=== PATIENT | female | born 1940 | race Caucasian/White ===

== ENCOUNTER 2024-10-11 13:04 | Inpatient (IN) | payer MEDICARE, MEDICAID ==
[~2024-10-11] VITALS: Ht 149.9 cm; Wt 59.0 kg
[2024-10-11 15:50] LABS: CHLORIDE 100 mEq/L (98-107); POTASSIUM 5.1 mEq/L (3.5-5.1); SODIUM 136 mEq/L (136-145)
[2024-10-11 15:51] LABS: CARBON DIOXIDE 24 mEq/L (21-32)
[2024-10-11 15:52] LABS: BASOPHILS % 0.4 % (0.0-2.0); CALCIUM 8.7 mg/dL (8.7-10.4); EOSINOPHILS % 0.5 % (0.0-5.0); HEMOGLOBIN. 12.2 g/dL (12.0-16.0); LYMPHOCYTES % 29.1 % (20.0-50.0); MEAN CORPUSCULAR HEMOGLOBIN 32.9 pg (28.0-32.0); MEAN CORPUSCULAR HGB CONC 33.9 g/dL (31.0-37.0); MEAN CORPUSCULAR VOLUME 96.9 fL (81.0-99.0); MEAN PLATELET VOLUME 7.5 fl (7.4-10.4); MONOCYTES % 5.9 % (2.0-8.0); NEUTROPHILS % 64.1 % (40.0-76.0); PLATELET 265 x1000/uL (130-400); RED BLOOD CELL COUNT 3.72 mill/uL (4.2-5.4); RED CELL DISTRIBUTION WIDTH 14.2 % (11.6-14.6); WHITE BLOOD COUNT 7.3 x1000/uL (4.5-11.0)
[2024-10-11 15:57] LABS: CREATININE 0.8 mg/dL (0.6-1.0); GLUCOSE 248 mg/dL (70-105); UREA NITROGEN BLOOD 14 mg/dL (9-23)
[2024-10-11 15:59] LABS: TROPONIN I HIGH SENSITIVITY 4 ng/L (3.0-34)
[2024-10-11] MEDS ORDERED: GUAIFENESIN 200MG/10ML SUGAR FREE UDC PO PRN (16:30)
[2024-10-11] MEDS ORDERED: IPRATROPIUM/ALBUTEROL 0.5-3(2.5)MG/3ML NEB HHN PRN (16:30)
[2024-10-11] MEDS ORDERED: DOCUSATE SODIUM 100MG CAPSULE PO PRN (16:30)
[2024-10-11 17:40] LABS: TROPONIN I HIGH SENSITIVITY < 4 ng/L (3.0-34)
[2024-10-11 17:55] LABS: COLOR URINE YELLOW (YELLOW); GLUCOSE URINE 1+ (NEGATIVE); KETONES URINE NEGATIVE (NEGATIVE); LEUKOCYTE ESTERASE URINE 2+ (NEGATIVE); NITRITE URINE NEGATIVE (NEGATIVE); OCCULT BLOOD URINE NEGATIVE (NEGATIVE); PROTEIN URINE NEGATIVE (NEGATIVE); SPECIFIC GRAVITY URINE 1.014 (1.005-1.030)
[2024-10-11 18:00] VITALS: BP 183/50; PULSE 76; RESP 14; TEMP 36.8
[2024-10-11] MEDS ORDERED: DEXTROSE 50% WATER 50ML SYRINGE IV PRN (18:00)
[2024-10-11 18:14] LABS: CLARITY URINE HAZY (CLEAR)
[2024-10-11 18:15] LABS: *AMPHETAMINES SCREEN URINE NEGATIVE (NEGATIVE); *BARBITURATES SCREEN URINE NEGATIVE (NEGATIVE); *BENZODIAZEPINES SCREEN URINE NEGATIVE (NEGATIVE); *COCAINE SCREEN URINE NEGATIVE (NEGATIVE); CANNABINOID URINE SCREEN NEGATIVE (NEGATIVE); ECSTASY MDMA SCREEN URINE NEGATIVE (NEGATIVE); METHADONE URINE SCREEN NEGATIVE (NEGATIVE); OPIATES URINE SCREEN NEGATIVE (NEGATIVE); PHENCYCLIDINE URINE SCREEN NEGATIVE (NEGATIVE)
[2024-10-11 18:16] LABS: RBC URINE NONE SEEN /hpf (0-2); SQUAMOUS EPITHELIAL CELL URINE 1+ /lpf (RARE/1+)
[2024-10-11 18:17] LABS: BACTERIA URINE 4+
[2024-10-11 18:29] VITALS: BP 183/50; PULSE 62; RESP 14; TEMP 36.9
[2024-10-11] MEDS: SODIUM CHLORIDE 0.45% 1,000 ML IV SCH (18:32)
[2024-10-11] MEDS ORDERED: LISI10TA26 MT (18:52)
[2024-10-11] MEDS: HYDRALAZINE 20MG/ML VIAL IV PRN (18:53)
[2024-10-11] MEDS ORDERED: ROSU40TA MT (18:53)
[2024-10-11] MEDS ORDERED: ASPI-1497 MT (18:54)
[2024-10-11] MEDS ORDERED: ISOS30TA91 MT (18:55)
[2024-10-11] MEDS ORDERED: METF-416 MT (18:58)
[2024-10-11] MEDS ORDERED: RANO500T6 PO (18:58)
[2024-10-11] MEDS: INSULIN LISPRO 100 UNITS/ML SUBCUT SCH (18:58)
[2024-10-11] MEDS ORDERED: METO25TA6 MT (18:58)
[2024-10-11] MEDS ORDERED: CLOP-31 MT (18:59)
[2024-10-11 20:00] VITALS: BP_SYST 125; BP_SYST 140; BP_SYST 145; BP_DIAS 40; BP_DIAS 42; PULSE 69; RESP 18; TEMP 37.2
[2024-10-11] MEDS: BLOOD SUGAR DIAGNOSTIC STRIP TEST SCH (20:10)
[2024-10-11] MEDS: ATORVASTATIN CALCIUM 20MG TABLET PO SCH (20:19)
[2024-10-11 23:44] LABS: CREATINE KINASE 23 IU/L (34-145)
[2024-10-12] VITALS: BP 114/45; PULSE 70; RESP 17; TEMP 36.8
[2024-10-12 04:00] VITALS: BP 153/60; PULSE 71; RESP 20; TEMP 36.4; O2SAT 96
[2024-10-12] MEDS: ACETAMINOPHEN 325MG TABLET PO PRN (07:03)
[2024-10-12 07:22] LABS: BASOPHILS % 0.3 % (0.0-2.0); HEMATOCRIT. 38.5 % (36.0-48.0); HEMOGLOBIN. 12.9 g/dL (12.0-16.0); LYMPHOCYTES % 39.7 % (20.0-50.0); MEAN CORPUSCULAR HEMOGLOBIN 32.3 pg (28.0-32.0); MEAN CORPUSCULAR HGB CONC 33.5 g/dL (31.0-37.0); MEAN CORPUSCULAR VOLUME 96.2 fL (81.0-99.0); MEAN PLATELET VOLUME 7.8 fl (7.4-10.4); MONOCYTES % 8.4 % (2.0-8.0); NEUTROPHILS % 50.6 % (40.0-76.0); PLATELET 263 x1000/uL (130-400); RED CELL DISTRIBUTION WIDTH 14.2 % (11.6-14.6)
[2024-10-12 07:34] LABS: CARBON DIOXIDE 28 mEq/L (21-32); CHLORIDE 100 mEq/L (98-107); SODIUM 138 mEq/L (136-145)
[2024-10-12 07:39] LABS: CREATININE 0.6 mg/dL (0.6-1.0); GLUCOSE 165 mg/dL (70-105)
[2024-10-12 07:40] LABS: ALANINE AMINOTRANSFERASE 8 IU/L (10-49); ALBUMIN 3.9 g/dL (3.2-4.8); ASPARTATE AMINOTRANSFERASE 13 IU/L (<34); BILIRUBIN DIRECT 0.2 mg/dL (<=3.0); TRIGLYCERIDE 99 mg/dL (0-150); UREA NITROGEN BLOOD 12 mg/dL (9-23)
[2024-10-12 07:41] LABS: ALBUMIN 3.8 g/dL (3.2-4.8); BILIRUBIN TOTAL 0.6 mg/dL (0.1-1.0); LDL CHOLESTEROL 48 mg/dL (5-100); PROTEIN TOTAL 6.4 g/dL (6.0-8.3)
[2024-10-12 07:42] LABS: CHOLESTEROL 106 mg/dL (<200); CREATINE KINASE 27 IU/L (34-145); HDL CHOLESTEROL 42 mg/dL (>65)
[2024-10-12 07:43] LABS: T4 FREE 1.52 ng/dL (0.89-1.76); THYROID STIMULATING HORMONE < 0.10 uIU/mL (0.55-4.78)
[2024-10-12 08:00] VITALS: BP 163/50; PULSE 68; RESP 18; TEMP 36.8
[2024-10-12] MEDS: PANTOPRAZOLE 40MG DR TABLET PO SCH (09:38)
[2024-10-12] MEDS: AMLODIPINE 5MG TABLET PO SCH (09:41)
[2024-10-12 12:08] VITALS: BP 147/53; PULSE 71; RESP 17; TEMP 36.8
[2024-10-12] MEDS: RANOLAZINE 500 MG TAB.SR.12H PO SCH (13:51)
[2024-10-12] MEDS ORDERED: ATOR-2 MT (14:38)
[2024-10-12 16:00] VITALS: BP 151/60; PULSE 77; RESP 18; TEMP 36.9; O2SAT 98
[2024-10-12 16:50] VITALS: BP 147/53; PULSE 71; TEMP 98.3; O2SAT 98
[2024-10-12] MEDS ORDERED: METOPROLOL TARTRATE 25MG TABLET PO SCH (21:00)
[2024-10-13] MEDS ORDERED: ASPIRIN 81MG EC TABLET PO SCH (09:00)
[2024-10-13] MEDS ORDERED: ISOSORBIDE MONONITRATE 30MG TABLET SR 24HR PO SCH (09:00)
[2024-10-13] MEDS ORDERED: CLOPIDOGREL 75MG TABLET PO SCH (09:00)
[2024-10-13] MEDS ORDERED: LISINOPRIL 10MG TABLET PO SCH (09:00)
== END 2024-10-12 19:33 | disposition home or self-care (01) | DRG 637 ==
LOC: ER 13:04 → EDBEDREQTM 16:06 → EDBEDREQ 16:06 → ENRESERV 16:10 → 3WST 17:18
PROVIDERS: ADMIT Hospitalist; ATTEND Hospitalist
DX: E11.649 Type 2 diabetes mellitus with hypoglycemia without coma (principal); G92.8 Other toxic encephalopathy; I10 Essential (primary) hypertension; I95.1 Orthostatic hypotension; I65.22 Occlusion and stenosis of left carotid artery; E78.00 Pure hypercholesterolemia, unspecified; T50.995A Adverse effect of other drugs, medicaments and biological substances, initial encounter; I25.10 Atherosclerotic heart disease of native coronary artery without angina pectoris; Z79.02 Long term (current) use of antithrombotics/antiplatelets; Z79.82 Long term (current) use of aspirin; Z79.899 Other long term (current) drug therapy; Z95.1 Presence of aortocoronary bypass graft; Z95.2 Presence of prosthetic heart valve; Y92.89 Other specified places as the place of occurrence of the external cause
CPT/HCPCS: 36415; 71045; 80048; 80061; 80076; 80305; 81003; 82040; 82550; 82962; 83036; 83880; 84439; 84443; 84484; 85025; 93005; 93306; 93880; 93970; 97162; 97165; 99285; A4606; J0360; J1815